=== PATIENT | male | born 1995 | race Caucasian/White ===

== ENCOUNTER 2018-02-20 00:32 | Day surgery (SDC) | payer OTHER ==
[2018-02-20] MEDS ORDERED: ONDANSETRON HCL INJ/PF 4 MG/2 ML SDV IV ONE (01:59)
[2018-02-20] MEDS ORDERED: MORPHINE SULFATE 10 MG/ML INJ IV ONE ×2 (01:59→05:00)
[2018-02-20] MEDS ORDERED: NORMAL SALINE 1000 ML 1,000 ML IV ONE (01:59)
--- NOTE | 2018-02-20 02:05 | ER Document Report ---
ED GI/ - General Chief Complaint: Abdominal Pain Stated Complaint: BACK/ABDOMINAL PAIN Time Seen by Provider: 02/20/18 01:45 Mode of Arrival: Ambulatory Information source: Patient TRAVEL OUTSIDE OF THE [place] IN LAST 30 DAYS: No - HPI Patient complains to provider of: Abdominal pain, Vomiting Onset: This afternoon Timing/Duration: Gradual Quality of pain: Achy Severity at maximum: Moderate Severity in ED: Moderate Pain Level: 3 Location: Other - Lower abdomen Associated symptoms: Chills, Nausea, Vomiting Exacerbated by: Denies Relieved by: Denies Similar symptoms previously: No Recently seen / treated by doctor: No Notes: 02/20/18 02:04 Patient is a 22-year-old male presenting to the emergency room complaining of lower abdominal pain that started earlier today, he reports nausea and vomiting as well as chills, denies history of similar symptoms previously, no abdominal surgeries, no sick contacts - Related Data Allergies/Adverse Reactions: No Known Allergies Allergy (Unverified 02/20/18 01:34) Past Medical History - General Information source: Patient - Social History Smoking Status: Unknown if Ever Smoked Family History: Reviewed & Not Pertinent Review of Systems - Review of Systems Constitutional: Chills EENT: No symptoms reported Cardiovascular: No symptoms reported Respiratory: No symptoms reported Gastrointestinal: See HPI Genitourinary: No symptoms reported Male Genitourinary: No symptoms reported Musculoskeletal: No symptoms reported Skin: No symptoms reported Hematologic/Lymphatic: No symptoms reported Neurological/Psychological: No symptoms reported -: Yes All other systems reviewed and negative Physical Exam - Vital signs Vitals: Temp Pulse Resp BP Pulse Ox 98.0 F 51 L 16 148/86 H 98 02/20/18 01:32 02/20/18 01:32 02/20/18 01:32 02/20/18 01:32 02/20/18 01:32 Interpretation: Normal - General General appearance: Appears well, Alert - HEENT Head: Normocephalic, Atraumatic Eyes: Normal Pupils: PERRL - Respiratory Respiratory status: No respiratory distress Chest status: Nontender Breath sounds: Normal Chest palpation: Normal - Cardiovascular Rhythm: Regular Heart sounds: Normal auscultation Murmur: No - Abdominal Inspection: Normal Distension: No distension Bowel sounds: Normal Tenderness: Tender - Tenderness to palpate in right lower quadrant and left lower quadrant Organomegaly: No organomegaly - Back Back: Normal, Nontender - Extremities General upper extremity: Normal inspection, Nontender, Normal color, Normal ROM , Normal temperature General lower extremity: Normal inspection, Nontender, Normal color, Normal ROM , Normal temperature, Normal weight bearing. No: Gume's sign - Neurological Neuro grossly intact: Yes Cognition: Normal Orientation: AAOx4 Shraddha Coma Scale Eye Opening: Spontaneous Moca Coma Scale Verbal: Oriented Moca Coma Scale Motor: Obeys Commands Shraddha Coma Scale Total: 15 Speech: Normal Motor strength normal: LUE, RUE, LLE, RLE Sensory: Normal - Psychological Associated symptoms: Normal affect, Normal mood - Skin Skin Temperature: Warm Skin Moisture: Dry Skin Color: Normal Course - Re-evaluation Re-evalutation: 02/20/18 05:[address] Mcmullen, surgeon who will come to the emergency room to evaluate patient for admission 02/20/18 06:05 Findings were discussed with patient at bedside and recommendation was for admission to surgical service for likely appendectomy, patient is in agreement with this plan, stable at time of transfer of care - Vital Signs Vital signs: Temp Pulse Resp BP Pulse Ox 98.0 F 51 L 16 137/85 H 96 02/20/18 01:32 02/20/18 01:32 02/20/18 01:32 02/20/18 05:17 02/20/18 05:17 - Laboratory Result Diagrams: 02/20/18 02:30 02/20/18 02:30 Laboratory results interpreted by me: 02/20/18 02:30 WBC 14.8 H Seg Neutrophils % 87.5 H Lymphocytes % 6.9 L Absolute Neutrophils 12.9 H - Diagnostic Test Radiology reviewed: Reports reviewed Discharge - Discharge Clinical Impression: Acute appendicitis Qualifiers: Acute appendicitis type: with localized peritonitis Appendicitis gangrene presence: without gangrene Appendicitis perforation presence: without perforation Appendicitis abscess presence: without abscess Qualified Code(s): K35.30 - Acute appendicitis with localized peritonitis, without perforation or gangrene Condition: Stable Disposition: ADMITTED INPATIENT Admitting Provider: Surgicalist Unit Admitted: Surgical Floor
[2018-02-20 02:52] LABS: ABSOLUTE BASOPHILS # (AUTO) 0.1 10^3/uL (0.0-0.2); ABSOLUTE MONOCYTES (AUTO) 0.8 10^3/uL (0.1-1.4); ABSOLUTE NEUT (AUTO) 12.9 10^3/uL (1.7-8.2); BASOPHILS % (AUTO) 0.4 % (0-2); HEMATOCRIT 45.5 % (37.9-51.0); HEMOGLOBIN 16.3 g/dL (13.5-17.0); LYMPHOCYTES % (AUTO) 6.9 % (13-45); MEAN CORPUSCULAR HEMOGLOBIN 31.2 pg (27.0-33.4); MEAN CORPUSCULAR HGB CONC 35.8 g/dL (32.0-36.0); MEAN CORPUSCULAR VOLUME 87 fl (80-97); MONOCYTES % (AUTO) 5.2 % (3-13); PLATELET COUNT 229 10^3/uL (150-450); RED BLOOD COUNT 5.21 10^6/uL (4.35-5.55); RED CELL DISTRIBUTION WIDTH 13.7 % (11.5-14.0); SEGMENTED NEUTROPHILS % (AUTO) 87.5 % (42-78); TOTAL CELLS COUNTED % (AUTO) 100 %; WHITE BLOOD COUNT 14.8 10^3/uL (4.0-10.5)
[2018-02-20 03:39] LABS: ALANINE AMINOTRANSFERASE 58 U/L (21-72); ALBUMIN 4.8 g/dL (3.5-5.0); ALKALINE PHOSPHATASE 63 U/L (38-126); ANION GAP 13 (5-19); ASPARTATE AMINO TRANSFERASE 31 U/L (17-59); BILIRUBIN,DIRECT 0.3 mg/dL (0.0-0.4); BLOOD UREA NITROGEN 13 mg/dL (7-20); CALCIUM 10.2 mg/dL (8.4-10.2); CARBON DIOXIDE 23 mmol/L (22-30); CHLORIDE 102 mmol/L (98-107); GLUCOSE 106 mg/dL (75-110); LIPASE 99.4 U/L (23-300); POTASSIUM 4.5 mmol/L (3.6-5.0); TOTAL PROTEIN 7.6 g/dL (6.3-8.2)
--- NOTE | 2018-02-20 05:21 | RADIOLOGY REPORT (SQ) ---
CLINICAL DATA: 22-year-old male with right lower quadrant abdominal pain. TECHNICAL DATA: Axial CT imaging of the abdomen and pelvis was performed following the administration of intravenous contrast.. Sagittal and coronal reconstructed images were then performed. The CT study is performed according to ALARA (as low as reasonably achievable) or ALARA/IMAGE GENTLY, with automatic adjustment of mA and/or kV according to patient size. Comparison: None FINDINGS: Lung bases: The lung bases are clear. There is minimal bibasilar atelectasis and/or fibrosis. Liver:The liver is normal in size and configuration. No focal hepatic abnormalities are identified. Liver attenuation is within normal limits. Spleen: The spleen is top normal in size and is normal in configuration and attenuation. Gallbladder and bile duct: The gallbladder is well distended and unremarkable. There is no biliary ductal dilatation. Pancreas: The pancreas is grossly normal in size and configuration. Adrenal Glands:The adrenal glands are normal in size and configuration. Kidneys:The kidneys are normal in size and configuration. There is no evidence of hydronephrosis. There is no evidence of nephrolithiasis. No definite solid or cystic renal mass lesions are identified. Stomach:The stomach is grossly normal. There is no definite hiatal hernia. Bowel:The bowel gas pattern is non specific and non obstructive. Appendix: The appendix is mildly dilated and measures 8 mm in diameter. There is mild periappendiceal inflammation without evidence of rupture or periappendiceal abscess. Free air:There is no evidence of free air. Free fluid: There is no evidence of free fluid. Vasculature: The aorta is normal in caliber and contour. The inferior vena cava is grossly unremarkable. Lymphadenopathy: No pathologic lymphadenopathy is identified. Bladder: The bladder is well distended and smooth in contour. Reproductive: The prostate gland is grossly within normal limits. Bones: No acute osseous abnormalities are identified. Soft tissues: No focal soft tissue abnormalities are identified. IMPRESSION: 1. CT findings consistent with acute nonruptured appendicitis. There is no evidence of a periappendiceal abscess. 2. Otherwise, unremarkable CT scan of the abdomen and pelvis. These critical findings were discussed with Dr. Shirley on 02/20/2018 at 4:18 AM Central time.
[2018-02-20 05:44] LABS: APPEARANCE,URINE CLEAR; BILIRUBIN,URINE NEGATIVE (NEGATIVE); COLOR,URINE STRAW; GLUCOSE, URINE NEGATIVE (NEGATIVE); KETONES,URINE NEGATIVE (NEGATIVE); LEUKOCYTE ESTERASE,URINE NEGATIVE (NEGATIVE); NITRITE,URINE NEGATIVE (NEGATIVE); PROTEIN,URINE NEGATIVE (NEGATIVE); URINE SPECIFIC GRAVITY 1.055; UROBILINOGEN,URINE NEGATIVE mg/dL (<2.0)
[2018-02-20] MEDS ORDERED: LEVOFLOXACIN 500 MG/D5W RTU 500 MG/100 ML RTUPB IV ONE (06:02)
--- NOTE | 2018-02-20 06:02 | PDOC H&P ---
History of Present Illness Admission Date/PCP: 02/20/18 05:39 Patient complains of: Lower abdominal pain History of Present Illness: AGNES SABILLON is a 22 year old male in usual state of good health until last night when the had onset of generalized abdominal pain followed by nausea and vomiting he attempted to sleep however the pain localized in the lower abdomen and became progressively worse especially on the right side. The pain radiated to his back. Patient denies any fever. Denies any diarrhea. He denies any hematuria nor dysuria. Patient is otherwise healthy and has no significant past medical history. Past Medical History Medical History: None Past Surgical History Past Surgical History: Reports: Orthopedic Surgery - extensor tendon left arm repair Social History Smoking Status: Never Smoker Frequency of Alcohol Use: None Hx Recreational Drug Use: No Hx Prescription Drug Abuse: No Family History Family History: Reviewed & Not Pertinent Parental Family History Reviewed: No Children Family History Reviewed: No Sibling(s) Family History Reviewed.: No Medication/Allergy Allergies/Adverse Reactions: No Known Allergies Allergy (Unverified 02/20/18 01:34) Review of Systems All systems: reviewed and no additional remarkable complaints except as stated Gastrointestinal: PRESENT: as per HPI Physical Exam Vital Signs: Temp Pulse Resp BP Pulse Ox 98.0 F 51 L 16 137/85 H 96 02/20/18 01:32 02/20/18 01:32 02/20/18 01:32 02/20/18 05:17 02/20/18 05:17 General appearance: PRESENT: no acute distress, cooperative Eye exam: PRESENT: conjunctiva pink Neck exam: PRESENT: other - Supple with no tenderness. Respiratory exam: PRESENT: clear to auscultation beth Cardiovascular exam: PRESENT: RRR GI/Abdominal exam: PRESENT: other - Soft, nondistended, tenderness across his lower abdomen especially the right lower quadrant with guarding. Extremities exam: PRESENT: other - No swelling Neurological exam: PRESENT: alert, awake Psychiatric exam: PRESENT: appropriate affect Skin exam: PRESENT: warm Results Impressions: Abdomen/Pelvis CT 02/20/18 02:59 IMPRESSION: 1. CT findings consistent with acute nonruptured appendicitis. There is no evidence of a periappendiceal abscess. 2. Otherwise, unremarkable CT scan of the abdomen and pelvis. These critical findings were discussed with Dr. Shirley on 02/20/2018 at 4:18 AM Central time. Assessment & Plan - Diagnosis (1) Acute appendicitis Qualifiers: Acute appendicitis type: with localized peritonitis Appendicitis gangrene presence: without gangrene Appendicitis perforation presence: without perforation Appendicitis abscess presence: without abscess Qualified Code(s) : K35.30 - Acute appendicitis with localized peritonitis, without perforation or gangrene Is this a current diagnosis for this admission?: Yes Plan: Most likely appendicitis. I have recommended to him laparoscopic appendectomy. I have discussed with him the risk and benefits of the surgery including risk of mistaken diagnosis, stump leak, bleeding, infection, damage to adjacent structures, and conversion to an open procedure. Patient understands and agrees to proceed.
[2018-02-20] MEDS ORDERED: METRONIDAZOLE 500 MG/NS RTU 500 MG/100 ML RTUPB IV ONE ×2 (06:03→06:39)
[2018-02-20] MEDS ORDERED: BUPIVACAINE HCL 0.5 % INJ/PF 30 ML SDV ONE (06:54)
[2018-02-20] MEDS ORDERED: MEPERIDINE HCL/PF INJ 25 MG/1 ML DISP.SYRIN IV PRN (07:11)
[2018-02-20] MEDS ORDERED: DIPHENHYDRAMINE HCL 50 MG/ML VIAL IV PRN (07:11)
[2018-02-20] MEDS ORDERED: PROMETHAZINE HCL INJ 25 MG/1 ML VIAL IV PRN ×2 (07:11)
[2018-02-20] MEDS ORDERED: FENTANYL CITRATE INJ/PF 100 MCG/2 ML AMPUL IV PRN ×3 (07:11)
[2018-02-20] MEDS ORDERED: MORPHINE SULFATE 10 MG/ML INJ IV PRN (07:11)
[2018-02-20] MEDS ORDERED: MIDAZOLAM 2 MG/2 ML INJ ONE (07:54)
[2018-02-20] MEDS ORDERED: HYDROMORPHONE HCL INJ/PF 2 MG/ML AMPULE ONE (07:55)
[2018-02-20] MEDS ORDERED: ACETAMINOPHEN 1,000 MG/100 ML RTUPB IV ONE (07:55)
[2018-02-20] MEDS ORDERED: PROPOFOL INJ 200 MG/20 ML VIAL IV ONE (07:55)
[2018-02-20] MEDS ORDERED: KETOROLAC TROMETHAMINE 60 MG/2 ML SDV ONE (08:14)
[2018-02-20] MEDS ORDERED: DEXAMETHASONE SOD PHOSPHATE INJ 4 MG/1 ML VIAL ONE (08:14)
[2018-02-20] MEDS ORDERED: ONDANSETRON HCL INJ/PF 4 MG/2 ML SDV ONE (08:14)
[2018-02-20] MEDS ORDERED: SUCCINYLCHOLINE CHLORIDE INJ 200 MG/10 ML VIAL ONE (08:14)
[2018-02-20] MEDS ORDERED: ROCURONIUM BROMIDE INJ 50 MG/5 ML VIAL IV ONE (08:14)
[2018-02-20] MEDS ORDERED: ONDANSETRON HCL INJ/PF 4 MG/2 ML SDV IV PRN (08:20)
--- NOTE | 2018-02-20 08:20 | Operative Report ---
Operative Report DATE OF SURGERY: 02/20/18 PREOPERATIVE DIAGNOSIS: Appendicitis POSTOPERATIVE DIAGNOSIS: Acute appendicitis OPERATION: Laparoscopic appendectomy SURGEON: STACY KAUR ANESTHESIA: GA TISSUE REMOVED OR ALTERED: Appendix COMPLICATIONS: None ESTIMATED BLOOD LOSS: Minimal INTRAOPERATIVE FINDINGS: Inflamed distended nonperforated appendix PROCEDURE: Informed consent was obtained. Patient was brought to the operating room placed on the operating room table in the supine position. After satisfactory induction of general anesthesia patient's abdomen was prepped and draped in usual sterile fashion. A supraumbilical midline incision was made dissection carried down through the fascia and the peritoneal cavity was entered. Scruggs trocar was inserted and pneumoperitoneum produced with good patient toleration. A 5 mm trocar was placed in the right lateral abdomen lateral to the rectus above the level of the umbilicus. Another 5 mm trocar was placed in the left lateral abdomen lateral to the rectus below the level of the umbilicus. The appendix appeared markedly distended and inflamed but it was not perforated. There was slightly turbid fluid in the peritoneal cavity. Patient was placed in a Trendelenburg position with the right side up. Due to peritoneal attachments of the ileum visualization was difficult therefore the ileal peritoneal attachments were taken down. A plane was created between the mesoappendix and the appendix at the base of the appendix. Using a Endo SHEILA stapling device the appendix was taken flush with the cecum. The stump closure appeared secure. The mesoappendix was taken using a vascular load of the Endo SHEILA stapling device. The first vascular load misfired, however there was no significant bleeding. The second load fired without difficulty. Hemostasis appeared good. The operative field was lightly irrigated and irrigant aspirated out. Irrigation fluid was perfectly clear at the end of the case. The appendix was placed in an Endobag and removed through the Scruggs trocar site fascial defect. All trochars were removed under the direct vision of the laparoscope to ensure hemostasis. The Scruggs trocar site fascial defect was closed with interrupted Vicryl sutures. All skin incisions were closed with subcuticular interrupted Monocryl sutures. Marcaine was injected at the operative sites. Patient tolerated procedure well with no apparent complications and was taken to the recovery area in stable condition.
[2018-02-20] MEDS: MORPHINE SULFATE 10 MG/ML INJ IV PRN ×3 (11:17→19:55)
[2018-02-20] MEDS: NORMAL SALINE 1000 ML 1,000 ML IV PRN ×2 (11:17→19:56)
[2018-02-20] MEDS: HYDROCODONE/ACETAMINOPHEN 10-325 MG TABLET PO PRN (21:39)
[2018-02-21] MEDS: MORPHINE SULFATE 10 MG/ML INJ IV PRN (00:16)
[2018-02-21] MEDS: HYDROCODONE/ACETAMINOPHEN 10-325 MG TABLET PO PRN ×2 (02:03→07:28)
--- NOTE | 2018-02-21 11:11 | PDOC PROGRESS REPORT ---
Subjective Progress Note for:: 02/21/18 Subjective:: Feels well. Tolerating diet well. Minimal abdominal pain. Reason For Visit: ACUTE APPENDICITIS Physical Exam Vital Signs: Temp Pulse Resp BP Pulse Ox 98.2 F 59 L 18 104/53 L 96 02/21/18 07:35 02/21/18 07:35 02/21/18 07:35 02/21/18 07:35 02/21/18 07:35 Intake & Output 02/20/18 02/21/18 02/22/18 06:59 06:59 06:59 Intake Total 3165 Output Total 525 Balance 2640 Weight 85 kg General appearance: PRESENT: no acute distress, cooperative Respiratory exam: PRESENT: clear to auscultation beth Cardiovascular exam: PRESENT: RRR GI/Abdominal exam: PRESENT: other - Soft, nondistended, minimal tenderness. Wound is clean dry and intact. Extremities exam: PRESENT: other - No swelling and no tenderness Results Impressions: Abdomen/Pelvis CT 02/20/18 02:59 IMPRESSION: 1. CT findings consistent with acute nonruptured appendicitis. There is no evidence of a periappendiceal abscess. 2. Otherwise, unremarkable CT scan of the abdomen and pelvis. These critical findings were discussed with Dr. Shirley on 02/20/2018 at 4:18 AM Central time. Assessment & Plan - Diagnosis (1) Acute appendicitis Qualifiers: Acute appendicitis type: with localized peritonitis Appendicitis gangrene presence: without gangrene Appendicitis perforation presence: without perforation Appendicitis abscess presence: without abscess Qualified Code(s) : K35.30 - Acute appendicitis with localized peritonitis, without perforation or gangrene Is this a current diagnosis for this admission?: Yes Plan: Status post laparoscopic appendectomy. Patient looks good. Will discharge patient home.
[2018-02-21 11:22] VITALS: BP 114/62
--- NOTE | 2018-02-21 12:21 | DISCHARGE SUMMARY E ---
Discharge Summary NAME: AGNES SABILLON : 1995 AGE: 22Y ADMITTED: 02/20/2018 DISCHARGED: 02/21/2018 DISCHARGE DIAGNOSIS: Acute appendicitis. PROCEDURE PERFORMED DURING HOSPITALIZATION: Laparoscopic appendectomy performed by Dr. Rosangela Mcmullen on 02/20/2018. HOSPITAL COURSE: The patient underwent the above-mentioned surgery. The patient did well postoperatively. He was feeling much better, was tolerating a diet with minimal abdominal pain at the time of discharge. The patient is now being discharged to home in good condition. He is to stay on convalescent leave from the [facility] for 2 weeks. He is to follow up with [facility] in 2 weeks. He is to stay active but avoid strenuous activity such as lifting greater than 10 pounds or doing sit-ups for 1 month. DISCHARGE MEDICATIONS: Percocet 1 p.o. every 4 hours p.r.n. pain. DIET: He may resume a regular diet at home. DICTATING PHYSICIAN: ROSANGELA MCMULLEN M.D. [id number] PHY#: [id number] ID: [id number] JOB#: [id number] ACCT: [id number] cc:Mukesh GOLDMAN MD, M.D. [facility],
== END 2018-02-21 12:17 | disposition home or self-care (01) ==
LOC: ER 00:32 → UNDOADMIN 05:39 → EH 05:39 → OROUT 08:20 → ER 08:20 → 2N 09:14 → EH 09:14 → OROUT 02-21 08:20 → UNDODISIN 02-21 12:17
PROVIDERS: ATTEND Surgery
DX: K35.80 Unspecified acute appendicitis (principal); Z23 Encounter for immunization
CPT/HCPCS: 96376; 99285; 96361; 96374; 96375; 36415; 83690; 85025; 80053; 81001; 88304 ×2; 74177; 90686; 44970; G0008; J2250; J3490 ×2; J1100; J1885; J2270 ×2; J1170; J0330; J2405; J7030; J2704; J0131; 840; 90471